=== PATIENT | male | born 2005 | race Caucasian/White ===

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

== ENCOUNTER 2024-03-26 14:32 | Outpatient (AMB) | payer OTHER, SELFPAY ==
[2024-03-26 14:38] VITALS: BP 110/68; PULSE 86; O2SAT 98; BMI 21.4
--- NOTE | 2024-03-26 14:38 | MHC.PC.OV ---
Vital Signs 03/26/24 14:38 Height 5 ft 3 in Weight 121 lb BMI 21.4 BP 110/68 Blood Pressure Location Rt brachial Position Sitting Pulse 86 Pulse Source Pulse Oximeter Pulse Oximetry (%) 98 Intake Visit Reasons: Transfer of care from [facility] Intake Note: pt is here to est care from [facility] Food Services Coordinator Required: No Allergies No Known Allergies Allergy (Verified 03/26/24 16:54) Medication List - Last Reconciled 03/26/24 by CHRISTINA Coy fluoxetine 40 mg PO QAM lamotrigine 200 mg PO DAILY loratadine 10 mg PO DAILY trazodone 50 mg PO BEDTIME Tobacco use date assessed: 09/24/23 Dental Screening Dental Screen Date: 09/24/23 HPI Transfer of care from [facility] HPI Details Pt has a hx of bipolar 2 disorder and anxiety. He follows up with a psychiatrist and a therapist. Denies any SI and HI. Pt also has autism. Pt has a program coordinator for residence life. He is considering going back to school. [facility] Medical History (Updated 03/26/24 @ 14:57 by CHRISTINA Coy) Autistic disorder Scoliosis Bipolar 2 disorder Mental health disorder Family History Father Lower back pain Mother Type 1 diabetes Social History Housing: House Patient Tobacco Use Status: Never used Tobacco e-Cigarette/Vaping Use: Never Used service: No Current occupational status: unemployed Cognitive needs: No Hearing needs: No Vision needs: Yes Questionnaire PHQ-9 Over the last 2 weeks, how often have you been bothered by any of the following problems? 13968 - PHQ-9 Billing: Patient declined-do not bill Source: Developed by Drs. Rex Vides, Shira Cage, Nacho Clark and colleagues, with an educational trista from [employer]. Thrive Questionnaire Date Thrive assessed: 03/25/24 I am a: Patient What is your living situation today?: I have a steady place to live Within the past 12 months, did the food you bought not last and you didn't have the money to get more?: Never true Within the past 12 months, did you worry whether your food would run out before you got money to buy more?: Never true Do you have trouble paying for medicines?: No Do you have trouble getting transportation to medical appointments?: No Do you have trouble paying your heating and electricity bill?: No Do you have trouble taking care of your child, family member or friend?: No Do you have trouble with day-to-day activities such as bathing, preparing meals, shopping, managing finances, etc.?: No Are you currently unemployed and looking for a job?: Yes Are you interested in more education?: No Please select the resources that you would like help with: None Currently or been in a relationship where the following occur: No concerns reported THRIVE Score: 0 AUDIT C Alcohol Use Questionnaire (AUDIT-C) 1. How often do you have a drink containing alcohol?: Never Total Score: 0 YUDELKA-7 AMB Questionnaire YUDELKA-7 Date YUDELKA - 7 assessed: 07/26/23 Feeling nervous, anxious, or on edge: 3 = Nearly every day Not being able to stop or control worryin = Nearly every day Worrying too much about different things: 3 = Nearly every day Trouble relaxin = Nearly every day Being so restless that it is hard to sit still: 0 = Not at all Becoming easily annoyed or irritable: 1 = Several days Feeling afraid as if something awful might happen: 0 = Not at all Total YUDELKA-7 score (0-4 normal; 5-9 mild; 10-14 moderate; 15-21 severe): 13 Source: Developed by Drs. Rex Vides, Shira Cage, Nacho Clark and colleagues, with an educational trista from [employer]. YUDELKA-7 Assessment Billing YUDELKA-7 Assessment Tool: YUDELKA-7 Assessment 54875 (denies any SI or HI) Review of Systems Const Reports as per HPI Physical exam (Primary Care) Vital Signs: Last Vital Signs Pulse 86 03/26/24 14:38 BP 110/68 03/26/24 14:38 Pulse Ox 98 03/26/24 14:38 BMI result Body Mass Index 21.4 Tobacco/Smoking Status: Tobacco use Status Tobacco use date assessed 09/24/23 03/26/24 14:42 Patient Tobacco Use Status Never used Tobacco 03/26/24 14:42 e-Cigarette/Vaping Use Never Used 03/26/24 14:42 Thrive Assessment: Date of Thrive Assessment Date Thrive assessed 03/25/24 03/26/24 14:42 Currently or been in a relationship where the following occur: No concerns reported Const General: cooperative Orientation/consciousness: patient oriented x3 Resp Effort & Inspection: normal respiratory effort Auscultation: clear to auscultation bilaterally Cardio Rate: regular rate Rhythm: regular rhythm Heart sounds: S1 normal heart sound present, S2 normal heart sound present and Murmur heart sound present Back/Spine/Pelvis Other: scoliosis noted Neuro General: patient oriented x3 Psych Appearance: grossly normal Mental Status: mental status grossly normal Speech and movement: Normal speech and movement present Affect: normal affect Attitude: cooperative Thought process: Normal thought process present Thought content: Normal thought content present Insight: Good insight present (Psych) Judgement: Good judgement present (Psych) Coding Level of Care Code New Pt Level 3 (39554) Diagnoses Autistic disorder F84.0 Anxiety F41.9 Additional Codes YUDELKA-7 Assessment Billing - YUDELKA-7 Assessment Tool: YUDELKA-7 Assessment 94977 ([id number]) Assessment & Plan Assessment & Plan (1) Autistic disorder: Code(s): F84.0 - Autistic disorder Category: Medical Plan: program coordinator for residence life (2) Anxiety: Code(s): F41.9 - Anxiety disorder, unspecified Category: Medical Plan: has a psychiatrist and therapist Plan The patient agreed to the use of a medical practitioners for this encounter. Scribed for CHRISTINA Hernandez by Rebecca Garcia medical practitioners, on 03/26/2024 at 14:45 EST. Orders: Orders Lipid Panel Today F41.9 - Anxiety disorder, unspecified, F84.0 - Autistic disorder Complete Blood Count Auto Diff Today F41.9 - Anxiety disorder, unspecified, F84.0 - Autistic disorder Comprehensive [place]. Panel Fast Today F41.9 - Anxiety disorder, unspecified, F84.0 - Autistic disorder TSH reflex Free T4 Today F41.9 - Anxiety disorder, unspecified, F84.0 - Autistic disorder UA CC w/rflx Micro + Cult Today F41.9 - Anxiety disorder, unspecified, F84.0 - Autistic disorder Glutamic acid decarboxylase Ab Today F41.9 - Anxiety disorder, unspecified, F84.0 - Autistic disorder
== END 2024-03-26 15:25 | disposition home or self-care (01) ==
LOC: HO.HMCC 14:32
PROVIDERS: PCP Nurse Practitioner Primary Care; Visit Provider Nurse Practitioner Family
DX: F84.0 Autistic disorder (principal); F41.9 Anxiety disorder, unspecified

== ENCOUNTER → 2024-03-26 14:32 | Outpatient (BNVA) | payer OTHER, SELFPAY | PROVIDERS: PCP Nurse Practitioner Primary Care; Visit Provider Nurse Practitioner Family | DX: F84.0 Autistic disorder (principal); F41.9 Anxiety disorder, unspecified; F31.81 Bipolar II disorder | CPT/HCPCS: 96127 ==